=== PATIENT | male | born 2000 | race Caucasian/White ===

== ENCOUNTER 2021-02-07 17:14 | Emergency (ER) | payer SELFPAY ==
[2021-02-07 17:32] VITALS: BP 121/73; PULSE 96; RESP 16; TEMP 36.7; O2SAT 98; BMI 23.1
[2021-02-07 18:33] LABS: Add Urine Microscopic? NO; Charge for UA Resulting for Rev
[2021-02-07 18:38] LABS: Bilirubin Urine 1+ (Negative); Blood Urine Neg (Negative); Glucose Urine UA Norm (Normal); Ketones Urine Negative (Negative); Leukocyte Esterase Urine Negative (Negative); Nitrate Urine Negative (Negative); Protein Urine Neg (Negative); Urine Appearance Clear (CLEAR); Urine Color Yellow (Yellow); Urobilinogen Urine Norm (Negative); pH Urine 5 (5-7)
--- NOTE | 2021-02-07 18:40 | W.ED.ABDPA2 ---
HPI - Abdominal Pain General: Chief Complaint: Abdominal Pain Stated Complaint: Lower Abdominal Pain Time Seen by Provider: 02/07/21 18:40 History of Present Illness: HPI narrative: Patient comes in today with complaints of periumbilical pain that started this morning. Patient went to the bathroom after having a sudden onset of sharp abdominal pain and had diarrhea stools. Patient reports after the diarrhea stools he is continue to have periumbilical discomfort. Patient denies any fever or nausea. Patient reports the pain radiates into his groin. Associated Symptoms: Reports diarrhea Review of Systems General: Reports: 10 or more systems reviewed and unremarkable except in HPI and below GI: Reports: abdominal pain and diarrhea Physical Exam Const: COMMON NORMALS: no acute distress and patient oriented x3 GENERAL APPEARANCE: cooperative HENMT: COMMON NORMALS: normocephalic, TM's normal bilaterally and Normal external nose present HEAD & SCALP: normal to inspection and normocephalic NOSE: Normal external nose present TYMPANIC MEMBRANE: TM's normal bilaterally MOUTH: Normal oral and palatal mucosa present THROAT: posterior oropharynx normal Eye: GENERAL EYE: appearance normal, both eyes and all related structures Neck/C-Spine: COMMON NORMALS: full ROM Lymph: LYMPHATIC: no lymphadenopathy noted Chest: COMMONS NORMALS: normal inspection of the chest Resp: COMMON NORMALS: normal respiratory effort EFFORT & INSPECTION: Yes able to speak in complete sentences Cardio: COMMON NORMALS: regular rate and regular rhythm RATE: regular rate RHYTHM: regular rhythm GI: COMMON NORMALS: Soft to palpation PALPATION: Yes Soft to palpation and Yes Tenderness to palpation present (GI) (periumbilical) : COMMON NORMALS: Yes no CVA tenderness BLADDER/KIDNEY EXAM: Yes no CVA tenderness SCROTUM: Yes Cremasteric reflex present TESTES: Yes testicular lie normal Back/Pelvis: COMMON NORMALS: no CVA tenderness and thoracic and lumbar spine normal to inspection Extremity: COMMON NORMALS: normal to inspection Neuro: COMMON NORMALS: patient oriented x3 and moves all extremities Psych: COMMON NORMALS: mental status grossly normal and cooperative Skin: COMMON NORMALS: no rashes or lesions noted GENERAL SKIN EXAM: no rashes or lesions noted Course Vital Signs: Vital signs: Vital Signs Temperature 98.5 F 02/07/21 18:45 Pulse Rate 95 02/07/21 19:50 Respiratory Rate 16 02/07/21 17:32 Blood Pressure 93/57 02/07/21 19:50 Pulse Oximetry 99 02/07/21 19:50 MDM - Abdominal Pain MDM Narrative: Medical decision making narrative: 20-year-old male patient comes in with periumbilical abdominal pain. Patient also reported some diarrhea. Patient denies any nausea vomiting or fever. On exam patient is tender in the periumbilical region and the right lower quadrant. Patient did also mention some pain radiating into the groin on evaluation of the groin no noticeable hernia was noted and positive cremasteric reflex was noted. Differential diagnosis includes but not limited to abdominal pain, acute pancreatitis, gastroenteritis, hernia. CT of the abdomen pelvis noted no appendicitis and noted mesenteric adenitis. Laboratory values were normal. Reviewed exam with patient with recommendations for treatment and follow-up. Patient reported understanding. Differential Diagnosis: Differential diagnosis abdominal pain: Likely abdominal pain, acute appendicitis and gastroenteritis Lab Data: Labs: Lab Results 02/07/21 02/07/21 02/07/21 18:30 18:52 18:52 WBC 9.7 10^3/uL 10^3/ uL (4.0-10.0) RBC 5.00 10^6/uL 10^6 /uL (4.1-5.3) Hgb 14.6 g/dL g/dL (11.7-16.6) Hct 43.5 % % (42.0-52.0) MCV 87.0 fl fl (80-94) MCH 29.2 pg pg (28.0-34.0) MCHC 33.6 g/dL g/dL (30.0-36.0) RDW 13.2 % % (12.1-15.1) Plt Count 233 10^3/cmm 10^3 /cmm (130-400) MPV 10.4 fL fL (7.4-10.4) Neut % (Auto) 53.1 % % Lymph % (Auto) 34.5 % % [place] % (Auto) 5.6 % % Eos % (Auto) 6.0 % % Baso % (Auto) 0.5 % % Neut # (Auto) 5.13 10^3/uL 10^3 /uL (1.8-7.7) Lymph # (Auto) 3.3 10^3/uL 10^3/ uL (0.8-4.8) [place] # (Auto) 0.5 10^3/uL 10^3/ uL (0.2-0.9) Eos # (Auto) 0.6 10^3/uL 10^3/ uL (0.0-0.8) Baso # (Auto) 0.1 10^3/uL 10^3/ uL (0.0-0.1) Nucleated RBC % (a uto) 0 % % Nucleated RBCs # 0.0 /100WBC /100W BC Sodium 143 mmol/L mmol/L (136-145) Potassium 3.8 mmol/L mmol/L (3.5-5.1) Chloride 102 mmol/L mmol/L (98-107) Carbon Dioxide 28 mmol/L mmol/L (22-29) Anion Gap 16.8 (5-19) BUN 8 mg/dL mg/dL (6-20) Creatinine 0.8 mg/dL mg/dL (0.7-1.2) GFR Calculation 122.0 mL/min mL/m in (90-130) Glucose 85 mg/dL mg/dL (65-115) Calculated Osmolal ity 294 mOsm/kg mOsm/ kg (285-295) Calcium 9.5 mg/dL mg/dL (8.5-10.5) Total Bilirubin 0.3 mg/dL mg/dL (0.15-1.2) AST 14 U/L U/L (0-40) ALT 12 U/L U/L (0-41) Alkaline Phosphata se 68 IU/L IU/L (40-130) Total Protein 6.9 g/dL g/dL (6.6-8.7) Albumin 4.4 g/dL g/dL (3.5-5.2) Globulin 2.5 g/dL g/dL (1.3-4.6) Lipase 32 U/L U/L (13-60) Urine Color Yellow (Yellow) Urine Appearance Clear (CLEAR) Urine pH 5 (5-7) Ur Specific Gravit y 1.030 (1.005-1.030) Urine Protein Neg (Negative) Urine Glucose (UA) Norm (Normal) Urine Ketones Negative (Negative) Urine Blood Neg (Negative) Urine Nitrate Negative (Negative) Urine Bilirubin 1+ H (Negative) Urine Urobilinogen Norm mg/dL mg/dL (Negative) Ur Leukocyte Xuan ase Negative (Negative) Discharge Plan Discharge Patient Disposition: Home Clinical Impression: Acute mesenteric adenitis Condition: Stable Discharge Orders: Discharge ED (Routine); Ordered 02/07/21 Ordered By: Chris Ortega Referrals: Amor Castro FNP [Primary Care Provider] - Discharge Diet: Usual diet Discharge Activity: Increase activity as tolerated Patient Instructions: Mesenteric Adenitis (ED), Opioid Safety Activity Restrictions/Additional Instructions: Home and rest. Activity as tolerated. Drink plenty of fluids. Use acetaminophen for pain. Monitor for worsening symptoms such as high fever greater than 100.4, blood in vomit or stool, or new concerns. Follow-up with primary care. Return to the ER for new concerns. Coding Level of Care Code ED Nurse Administrator for Chg Fwd Exam Comprehensive
[2021-02-07 18:45] VITALS: BP 123/65; PULSE 102; TEMP 36.9; O2SAT 98
--- NOTE | 2021-02-07 18:48 | CTR_ITS ---
PROCEDURE INFORMATION: Exam: CT Abdomen And Pelvis With Contrast Exam date and time: 02/07/2021 6:48 PM Age: 20 years old Clinical indication: Other: Diarrhea; Abdominal pain; Localized; Lower; Additional info: Periumbilical pain TECHNIQUE: Imaging protocol: Computed tomography of the abdomen and pelvis with contrast. Radiation optimization: All CT scans at this facility use at least one of these dose optimization techniques: automated exposure control; mA and/or kV adjustment per patient size (includes targeted exams where dose is matched to clinical indication); or iterative reconstruction. Contrast material: OMNI 300; Contrast volume: 95 ml; Contrast route: INTRAVENOUS (IV); COMPARISON: No relevant prior studies available. RADIATION DOSE METRICS: Total DLP (mGy-cm): 1489.77 FINDINGS: Liver: Normal. No mass. Gallbladder and bile ducts: Normal. No calcified stones. No ductal dilation. Pancreas: Normal. No ductal dilation. Spleen: Normal. No splenomegaly. Adrenal glands: Normal. No mass. Kidneys and ureters: Normal. No hydronephrosis. Stomach and bowel: The stomach is distended with food and fluid. No wall thickening. Appendix: The appendix is visualized and is normal. Intraperitoneal space: Unremarkable. No free air. No significant fluid collection. Vasculature: Retroaortic left renal vein. Lymph nodes: Prominent mesenteric lymph nodes are most likely reactive. Urinary bladder: Unremarkable as visualized. Reproductive: Unremarkable as visualized. Bones/joints: Bone island in the left iliac bone. No fracture. Soft tissues: Unremarkable. CT/CT abdomen pelvis w con* [id number] IMPRESSION: 1. Mesenteric adenitis. 2. Distended stomach. Gastroparesis is not excluded. Radiation Dose CTDIVOL = (mGy): DLP = 1489.77 (mGy-cm)
[2021-02-07] MEDS: iohexol 300 mg/mL 100 mL Btl IV (19:03)
[2021-02-07 19:18] LABS: Basophils # 0.1 10^3/uL (0.0-0.1); Basophils % 0.5 %; Eosinophils # 0.6 10^3/uL (0.0-0.8); Hematocrit 43.5 % (42.0-52.0); Hemoglobin 14.6 g/dL (11.7-16.6); Lymphocytes # 3.3 10^3/uL (0.8-4.8); Lymphocytes % 34.5 %; Mean Corpuscular HGB Conc 33.6 g/dL (30.0-36.0); Mean Corpuscular Hemoglobin 29.2 pg (28.0-34.0); Mean Platelet Volume 10.4 fL (7.4-10.4); Monocytes # 0.5 10^3/uL (0.2-0.9); Monocytes % 5.6 %; Neutrophils # 5.13 10^3/uL (1.8-7.7); Neutrophils % 53.1 %; Nucleated Red Blood Cells % 0 %; Platelet Count 233 10^3/cmm (130-400); Red Cell Distribution Width 13.2 % (12.1-15.1); White Blood Count 9.7 10^3/uL (4.0-10.0)
[2021-02-07 19:19] LABS: Alanine Aminotransferase 12 U/L (0-41); Albumin Level 4.4 g/dL (3.5-5.2); Alkaline Phosphatase 68 IU/L (40-130); Anion Gap 16.8 (5-19); Aspartate Amino Transferase 14 U/L (0-40); Blood Urea Nitrogen 8 mg/dL (6-20); Calcium 9.5 mg/dL (8.5-10.5); Carbon Dioxide 28 mmol/L (22-29); Chloride 102 mmol/L (98-107); Globulin 2.5 g/dL (1.3-4.6); Glucose 85 mg/dL (65-115); Lipase 32 U/L (13-60); Osmolality Calculated 294 mOsm/kg (285-295); Potassium 3.8 mmol/L (3.5-5.1); Sodium 143 mmol/L (136-145); Total Bilirubin 0.3 mg/dL (0.15-1.2); Total Protein 6.9 g/dL (6.6-8.7)
[2021-02-07 19:50] VITALS: BP 93/57; PULSE 95; O2SAT 99
[2021-02-07 20:01] VITALS: BP 110/63; PULSE 91; O2SAT 98
== END 2021-02-07 20:02 | disposition home or self-care (01) ==
PROVIDERS: Emergency Medicine; Emergency Provider Nurse Practitioner Family; PCP Nurse Practitioner Family
DX: I88.0 Nonspecific mesenteric lymphadenitis (principal)
CPT/HCPCS: 74177; 80053; 81003; 83690; 85025; 99283; Q9967

== ENCOUNTER 2021-06-05 09:03 | Emergency (ER) | payer MEDICAID, SELFPAY ==
[2021-06-05 09:42] VITALS: BP 138/81; PULSE 85; RESP 16; TEMP 36.8; O2SAT 99; BMI 24.3
--- NOTE | 2021-06-05 09:54 | ED_ITS ---
HPI - Dental/Oral General: Chief complaint: Dental/Oral Stated complaint: dental pain Time Seen by Provider: 06/05/21 09:04 History of Present Illness: HPI Narrative: Patient has dental pain and lower right molar times last few days now having swelling MD Complaint: tooth pain Onset (ago): day(s) Duration: constant Severity: mild Context: history of dental caries Associated symptoms: Reports no associated symptoms; Denies fever(s) or odynophagia Review of Systems Const: Denies: fever(s) or chills ENMT: Reports: dental pain; Denies: throat pain or odynophagia Skin/Breast: Denies: rash Physical Exam Const: COMMON NORMALS: no acute distress GENERAL APPEARANCE: cooperative HENMT: COMMON NORMALS: Normal external nose present FACE & SINUS: normal facial exam NOSE: Normal external nose present TEETH & GINGIVA IMAGES: 1. Dental abscess not visible on the gumline but there is redness and swelling and then does have some swelling to the jaw area able to speak in complete sentences no significant lymphadenopathy Neck/C-Spine: COMMON NORMALS: full ROM Lymph: LYMPHATIC: no lymphadenopathy noted Psych: COMMON NORMALS: mental status grossly normal Skin: COMMON NORMALS: no rashes or lesions noted GENERAL SKIN EXAM: no rashes or lesions noted Course Vital Signs: Vital signs: Vital Signs Temperature 98.2 F 06/05/21 09:42 Pulse Rate 85 06/05/21 09:42 Respiratory Rate 16 06/05/21 09:42 Blood Pressure 138/81 06/05/21 09:42 Pulse Oximetry 99 06/05/21 09:42 Discharge Plan Discharge Patient Disposition: Home Clinical Impression: Dental abscess Condition: Stable Prescriptions: New clindamycin HCl 300 mg capsule 300 mg PO Q8H 7 Days Qty: 21 RF: 0 Discharge Orders: Discharge ED (Routine); Ordered 06/05/21 Ordered By: Amor Castro Discharge Diet: Usual diet Discharge Activity: Resume usual activity Patient Instructions: Dental Abscess (ED) Activity Restrictions/Additional Instructions: Follow-up with medical provider as directed. Take medications as prescribed. Return to the ER or your medical provider if condition worsens. Please read and understand discharge instructions. If any questions ask please. Follow-up with Jag as soon as he can. Coding Level of Care Code ED Transplant Coordinator for Dorcas Wiseman
[2021-06-05 09:59] VITALS: BP 138/85; PULSE 85; RESP 16; TEMP 36.3; O2SAT 97
== END 2021-06-05 10:03 | disposition home or self-care (01) ==
PROVIDERS: Emergency Provider Nurse Practitioner Family
DX: K04.7 Periapical abscess without sinus (principal)
CPT/HCPCS: 99281

== ENCOUNTER 2021-06-25 17:07 | Inpatient (IN) | payer MEDICAID, SELFPAY ==
[2021-06-25 17:14] VITALS: BP 109/67; PULSE 128; RESP 18; TEMP 36.8; O2SAT 97; BMI 22.6
--- NOTE | 2021-06-25 17:26 | W.ED.PSYCHS ---
HPI - Psych General: Chief Complaint: Psychiatric Symptoms Stated Complaint: SI; active attempts Time Seen by Provider: 06/25/21 17:12 Source: patient Mode of arrival: ambulatory Limitations: no limitations History of Present Illness: 20-year-old male who states he has been having suicidal thoughts over the last month with of worsening this week. States that last week he took pills in an attempt to kill himself. He states he is just been increasingly depressed does not take any meds never seen him in the past. He denies any worsening improving factors denies any recent attempts this week. Associated symptoms: Reports depression and suicidal ideation Review of Systems Const: Denies: fever(s), chills, body aches or change in appetite Eyes: Denies: blurry vision or eye discomfort ENMT: Denies: throat pain or dental pain Card: Denies: chest pain Resp: Denies: dyspnea GI: Denies: abdominal pain, nausea, vomiting or diarrhea : Denies: dysuria Musc: Denies: neck pain or back pain Skin/Breast: Denies: rash Neuro: Denies: headache(s) Psych: Reports: depression and suicidal ideation Jonh/Lymph: Denies: easy bruising All/Imm: Denies: urticaria PFSH ED PFSH: Medical History (Updated 06/25/21 @ 17:29 by Kassidy Russo MD) No pertinent past medical history Social History Substance/Drug Use: current Physical Exam Const: COMMON NORMALS: patient oriented x3 and healthy appearing HENMT: COMMON NORMALS: normocephalic and atraumatic HEAD & SCALP: normocephalic and atraumatic Eye: COMMON NORMALS: Equal, round and reactive pupils present and EOMs intact bilaterally PUPIL: Yes Equal, round and reactive pupils present Neck/C-Spine: COMMON NORMALS: full ROM and supple Chest: COMMONS NORMALS: normal inspection of the chest and normal palpation of entire chest wall Resp: COMMON NORMALS: normal respiratory effort, No retractions, No use of accessory muscles and clear to auscultation bilaterally AUSCULTATION: clear to auscultation bilaterally Cardio: COMMON NORMALS: regular rate, regular rhythm and No murmurs present (Cardio) RATE: regular rate RHYTHM: regular rhythm GI: COMMON NORMALS: Normal to inspection, nondistended, normoactive bowel sounds present, Soft to palpation, non-tender and no masses PALPATION: Yes Soft to palpation Extremity: COMMON NORMALS: normal to inspection and full ROM Neuro: COMMON NORMALS: patient oriented x3, moves all extremities and no focal motor deficits Psych: COMMON NORMALS: mental status grossly normal and cooperative MOOD & AFFECT: Yes depressed mood THOUGHT CONTENT: Yes Suicidality present Skin: COMMON NORMALS: no rashes or lesions noted and no wounds GENERAL SKIN EXAM: no rashes or lesions noted Course Vital Signs: Vital signs: Vital Signs Temperature 98.2 F 06/25/21 17:14 Pulse Rate 128 H 06/25/21 17:14 Respiratory Rate 18 06/25/21 17:14 Blood Pressure 109/67 06/25/21 17:14 Pulse Oximetry 97 06/25/21 17:14 [facility] - Psych Medical Decision Making Patient presents here with suicidal ideation. Patient is medically cleared here and will admit to psych Lab Data : 06/25/21 17:55 06/25/21 17:55 Laboratory Results WBC 10.4 10^3/uL (4.0-10.0) H 06/25/21 17:55 RBC 5.12 10^6/uL (4.1-5.3) 06/25/21 17:55 Hgb 14.8 g/dL (11.7-16.6) 06/25/21 17:55 Hct 44.8 % (42.0-52.0) 06/25/21 17:55 MCV 87.5 fl (80-94) 06/25/21 17:55 MCH 28.9 pg (28.0-34.0) 06/25/21 17:55 MCHC 33.0 g/dL (30.0-36.0) 06/25/21 17:55 RDW 12.8 % (12.1-15.1) 06/25/21 17:55 Plt Count 269 10^3/cmm (130-400) 06/25/21 17:55 MPV 10.2 fL (7.4-10.4) 06/25/21 17:55 Neut % (Auto) 51.9 % 06/25/21 17:55 Lymph % (Auto) 37.2 % 06/25/21 17:55 [place] % (Auto) 5.5 % 06/25/21 17:55 Eos % (Auto) 4.7 % 06/25/21 17:55 Baso % (Auto) 0.4 % 06/25/21 17:55 Neut # (Auto) 5.38 10^3/uL (1.8-7.7) 06/25/21 17:55 Lymph # (Auto) 3.9 10^3/uL (0.8-4.8) 06/25/21 17:55 [place] # (Auto) 0.6 10^3/uL (0.2-0.9) 06/25/21 17:55 Eos # (Auto) 0.5 10^3/uL (0.0-0.8) 06/25/21 17:55 Baso # (Auto) 0.0 10^3/uL (0.0-0.1) 06/25/21 17:55 Nucleated RBC % (auto) 0 % 06/25/21 17:55 Nucleated RBCs # 0.0 /100WBC 06/25/21 17:55 Sodium 142 mmol/L (136-145) 06/25/21 17:55 Potassium 3.9 mmol/L (3.5-5.1) 06/25/21 17:55 Chloride 105 mmol/L (98-107) 06/25/21 17:55 Carbon Dioxide 21 mmol/L (22-29) L 06/25/21 17:55 Anion Gap 19.9 (5-19) H 06/25/21 17:55 BUN 12 mg/dL (6-20) 06/25/21 17:55 Creatinine 0.5 mg/dL (0.7-1.2) L 06/25/21 17:55 GFR Calculation 209.9 mL/min (90-130) H 06/25/21 17:55 Glucose 126 mg/dL (65-115) H 06/25/21 17:55 Calculated Osmolality 295 mOsm/kg (285-295) 06/25/21 17:55 Calcium 10.1 mg/dL (8.5-10.5) 06/25/21 17:55 Total Bilirubin 0.2 mg/dL (0.15-1.2) 06/25/21 17:55 AST 15 U/L (0-40) 06/25/21 17:55 ALT 19 U/L (0-41) 06/25/21 17:55 Alkaline Phosphatase 97 IU/L (40-130) 06/25/21 17:55 Total Protein 7.4 g/dL (6.6-8.7) 06/25/21 17:55 Albumin 4.5 g/dL (3.5-5.2) 06/25/21 17:55 Globulin 2.9 g/dL (1.3-4.6) 06/25/21 17:55 Salicylates < 0.3 mg/dL (3-10) L 06/25/21 17:55 Acetaminophen < 5.0 ug/mL (10-30) L 06/25/21 17:55 Ethyl Alcohol < 10 mg/dL (0-10) 06/25/21 17:55 Discharge Plan Discharge Patient Disposition: Admitted As Inpatient Clinical Impression: Suicidal ideation Coding Level of Care Code ED Can Closing Machine Operator for Dorcas Fwd Exam Comprehensive
[2021-06-25 18:09] LABS: Basophils % 0.4 %; Eosinophils # 0.5 10^3/uL (0.0-0.8); Eosinophils % 4.7 %; Hematocrit 44.8 % (42.0-52.0); Hemoglobin 14.8 g/dL (11.7-16.6); Lymphocytes # 3.9 10^3/uL (0.8-4.8); Lymphocytes % 37.2 %; Mean Corpuscular Hemoglobin 28.9 pg (28.0-34.0); Mean Corpuscular Volume 87.5 fl (80-94); Mean Platelet Volume 10.2 fL (7.4-10.4); Monocytes # 0.6 10^3/uL (0.2-0.9); Monocytes % 5.5 %; Neutrophils # 5.38 10^3/uL (1.8-7.7); Neutrophils % 51.9 %; Nucleated Red Blood Cells % 0 %; Platelet Count 269 10^3/cmm (130-400); Red Blood Count 5.12 10^6/uL (4.1-5.3); Red Cell Distribution Width 12.8 % (12.1-15.1); White Blood Count 10.4 10^3/uL (4.0-10.0)
[2021-06-25 18:43] LABS: Alanine Aminotransferase 19 U/L (0-41); Albumin Level 4.5 g/dL (3.5-5.2); Alkaline Phosphatase 97 IU/L (40-130); Anion Gap 19.9 (5-19); Aspartate Amino Transferase 15 U/L (0-40); Blood Urea Nitrogen 12 mg/dL (6-20); Calcium 10.1 mg/dL (8.5-10.5); Carbon Dioxide 21 mmol/L (22-29); Chloride 105 mmol/L (98-107); Globulin 2.9 g/dL (1.3-4.6); Glomerular Filtration Rate 209.9 mL/min (90-130); Glucose 126 mg/dL (65-115); Osmolality Calculated 295 mOsm/kg (285-295); Potassium 3.9 mmol/L (3.5-5.1); Sodium 142 mmol/L (136-145); Total Bilirubin 0.2 mg/dL (0.15-1.2); Total Protein 7.4 g/dL (6.6-8.7)
[2021-06-25 18:44] LABS: Acetaminophen < 5.0 ug/mL (10-30); Alcohol Level < 10 mg/dL (0-10); Salicylate < 0.3 mg/dL (3-10)
[2021-06-25 20:31] VITALS: BP 112/66; PULSE 106; RESP 18; TEMP 36.3; O2SAT 93
[2021-06-25 21:27] VITALS: BP 100/64; PULSE 97; RESP 20; TEMP 36.4; O2SAT 97
[2021-06-26 06:00] VITALS: BP 116/74; PULSE 66; RESP 18; TEMP 36.6; O2SAT 97
--- NOTE | 2021-06-26 09:07 | W.PM.NPUH&PS ---
Providers/Chief Complaint Admitting Physician: Pio Drake MD Chief Complaint: SI; active attempts HPI NPU History of Present Illness Noam Moran is a 20 year old male who presented to the department with the following report: Chief Complaint: Psychiatric Symptoms Stated Complaint: SI; active attempts Time Seen by Provider: 06/25/21 17:12 Source: patient Mode of arrival: ambulatory Limitations: no limitations History of Present Illness:?? 20-year-old male who states he has been having suicidal thoughts over the last month with of worsening this week.? States that last week he took pills in an attempt to kill himself.? He states he is just been increasingly depressed does not take any meds never seen him in the past.? He denies any worsening improving factors denies any recent attempts this week. Associated symptoms: Reports depression and suicidal ideation He was admitted to the neuropsychiatric unit for definitive treatment of those issues. He presents today reporting that he was feeling suicidal, which is why he is here at the hospital. He reports he has never been hospitalized, he has never had outpatient services, and he has never been on medication. He reports he smokes about ten cigarettes a day and vapes. He denies alcohol. He reports he does smoke marijuana but denies any other illicit drugs. He has never been to rehab, never had a DUI, but he has had possession charge. He reports he started having difficulty maybe about 11 years old. He started experimenting heavily with drugs. He reports back then he started hearing voices. He reports he had depression, anxiety, and the voices started. He reports that he did have a suicide attempt [place] of last year. He reports there has been some self-injurious behavior at times. He reports he had just gotten to a point where he could not stand the voices, when he had this episode, before he came into the hospital. We discussed the risks, benefits, and alternatives of a trial of Abilify 10 mg po q daily, and he understood and agreed to proceed as is documented in this note. PSYCHIATRIC HISTORY: As above. SUBSTANCE ABUSE HISTORY: As above. FAMILY HISTORY: There are no mental cristian or addiction issues on either side of the family, and no suicide attempts or completions in the family reported. DEVELOPMENTAL HISTORY: He denies any issues with his mother?s or delivery of him. He met all developmental milestones on time. He denies any speech therapy, learning support, emotional support, or special education classes. PSYCHOSOCIAL HISTORY: He endorses that his parents were together when he was born, and that he is the only product of that union. He has a half-brother through his mother and a half-sister through his dad. He reports that his childhood was confined. He did not get out very much and once he got out, he started using drugs and getting into things. He denies significant CYS involvement. He denies any emotional, physical, or sexual abuse. He denies any traumatic events in his life. He reports that he made it to the 11th grade in high school. He did not get his GED. He endorses being heterosexual with his longest relationship being six years. He reports he has never been . He has a 2-year-old son. He has never been in the , and he endorses being a Sikh. His longest employment was eight months at [employer]. He reports he lives in a house with his fianc?, her son, her mother, and her mother?s boyfriend, in her mother?s house. LEGAL HISTORY: He reports he has been in [facility] three times; the longest time was not very long. MEDICAL HISTORY: Please see ED note for details. Meds NPU Home Medications Medication Instructions Recorded Confirmed Last Taken Type No Known Home Medications 06/25/21 06/25/21 Unknown History Allergies Allergy/AdvReac Type Severity Reaction Status Date / Time cefdinir [From Omnicef] Allergy ALGY-Rash Verified 06/05/21 09:47 Penicillins Allergy ALGY-Rash Verified 06/05/21 09:47 [facility] NPU PFS: Medical History (Updated 06/28/21 @ 07:11 by Pio Drake MD) No pertinent past medical history Mental Status Exam MSE Comments: This is a slender, white male, in hospital scrubs, with adequate grooming, and eye contact. No abnormal movements except for mild psychomotor agitation. Cooperative with exam in mild distress. Speech was normal rate and volume. Mood described as struggling; affect congruent. Thought process, organized. He does report auditory hallucinations but denies visual hallucinations. He reports he is hearing voices saying bad things about him and telling him he is worthless. Attention, concentration, and memory appear intact but were not formally tested. He is alert and oriented times three. Insight and judgment appear fair, impulse control limited. Vitals/I&O/Wt Last Vital Signs Temp 97.8 F 06/26/21 06:00 Pulse 66 06/26/21 06:00 Resp 18 06/26/21 06:00 BP 116/74 06/26/21 06:00 Pulse Ox 97 06/26/21 06:00 Weight last 48 hrs Weight 79.923 kg Data NPU : 06/25/21 17:55 06/25/21 17:55 A&P Assessment and plan (1) Suicidal ideation: Status: Acute (2) Cannabis abuse: Status: Acute (3) Psychosis: Status: Acute (4) Schizophrenia: Status: Acute Plan This is a 20-year-old, white male, with psychosis, with concerns for schizophrenia as well as cannabis use, suicidal thoughts, reporting auditory hallucinations, presenting with an openness to treatment. RECOMMENDATION AND PLAN: 1. Continue current medication. Continue current medications. Start Abilify 10 mg po qam. 2. Encourage individual, group, and milieu therapy. 3. Continue q-15 minute checks for safety. 4. Encourage sober living treatment at the highest level of care, to which he is willing to commit. Involuntary Hold Information 96 Hour Hold: 96 Hour Involuntary Admission: Yes 96 Hour Hold Ending Date: 06/29/21 96 Hour Hold Ending Time: 17:35 Attestations NPU Medical Necessity Statement*: Inpatient hospitalization is medically necessary and the clinically appropriate intervention, at this time. We will monitor medications and make changes as indicated. Patient will be in the hospital for over two midnights. Likely length of stay is 3-5 days. Coding Level of Care Code Acute Technical Service Rep for Dorcas Wiseman Diagnoses Suicidal ideation R45.851 Cannabis abuse F12.10 Psychosis F29 Schizophrenia F20.9
--- NOTE | 2021-06-26 12:48 | NPU.GN ---
[facility] Group Topic: Self Care General Mood of Group: Noam did not attend group he was sleeping .
[2021-06-26] MEDS: nicotine 2 mg Gum BUCCAL ×3 (13:51→22:07)
[2021-06-26 14:00] VITALS: BP 112/78; PULSE 78; RESP 17; TEMP 36.9; O2SAT 98
[2021-06-26 20:20] VITALS: BP 98/65; PULSE 108; RESP 18; TEMP 36.6; O2SAT 99
[2021-06-26] MEDS: ARIPiprazole 10 mg Tablet PO (21:13)
[2021-06-26] MEDS: trazodone 50 mg Tablet PO (21:29)
[2021-06-27 05:40] VITALS: BP 141/78; PULSE 78; RESP 17; TEMP 36.6; O2SAT 97
[2021-06-27] MEDS: ARIPiprazole 10 mg Tablet PO (08:39)
[2021-06-27] MEDS: nicotine 2 mg Gum BUCCAL (09:17)
[2021-06-27] MEDS: nicotine 21 mg Patch 1 PATCH TRANSDERMA (12:25)
--- NOTE | 2021-06-27 12:42 | NPU.GN ---
[facility] Topic:Coping Skills General Mood of Group: Noam did attend and participate in group today. Noam seems stable at this time. This CSS aided client in completing the [facility] [place] new patient packert for services. Clients hygiene was good.
[2021-06-27 14:00] VITALS: BP 97/58; PULSE 103; RESP 18; TEMP 36.4; O2SAT 96
--- NOTE | 2021-06-27 14:54 | P.NPUPN_ITS ---
Subjective NPU Subjective: Interval history: Patient presents today reporting that he feels the medication is helpful and he is feeling a little less suicidal. He was more focused on discharge and hoping he would be able to leave soon. We discussed the importance of him continuing his medication and working with the social work team on aftercare planning. We also discussed the Dr. Mart would be here tomorrow and have notes from our encounters and be able to make an independent decision about readiness for discharge. Mental Status Exam MSE Comments: This is a slender, white male, in hospital scrubs, with adequate grooming, and eye contact. No abnormal movements except for mild psychomotor agitation. Cooperative with exam in no acute distress. Speech was normal rate and volume. Mood described as better; affect congruent. Thought process, organized. Thought content: Patient denies suicidal or homicidal ideation, there are no delusions reported and he seems a little less guarded, he does report resolving auditory hallucinations but denies visual hallucinations. Attention, concentration, and memory appear intact but were not formally tested. He is alert and oriented times three. Insight and judgment appear fair, impulse control limited. Vitals/I&O/Wt Last Vital Signs Temp 97.5 F L 06/27/21 14:00 Pulse 103 H 06/27/21 14:00 Resp 18 06/27/21 14:00 BP 97/58 06/27/21 14:00 Pulse Ox 96 06/27/21 14:00 Data NPU : 06/25/21 17:55 06/25/21 17:55 A&P Assessment and plan (1) Schizophrenia: Status: Acute (2) Psychosis: Status: Acute (3) Cannabis abuse: Status: Acute (4) Suicidal ideation: Status: Acute Plan This is a 20-year-old, white male, with psychosis, with concerns for schizophrenia as well as cannabis use, suicidal thoughts, reporting auditory hallucinations, presenting with an openness to treatment. RECOMMENDATION AND PLAN: 1. Continue current medication. Continue current medications. Started Abilify 10 mg po qam. 2. Encourage individual, group, and milieu therapy. 3. Continue q-15 minute checks for safety. 4. Encourage sober living treatment at the highest level of care, to which he is willing to commit. Involuntary Hold Information 96 Hour Hold: 96 Hour Involuntary Admission: Yes 96 Hour Hold Ending Date: 06/29/21 96 Hour Hold Ending Time: 17:35 Attestations NPU Medical Necessity Statement*: Inpatient hospitalization is medically necessary and the clinically appropriate intervention, at this time. We will monitor medications and make changes as indicated. Likely length of stay is 1-3 days. Coding Level of Care Code Acute Sr Risk Management Consultant for Dorcas Fwd Diagnoses Schizophrenia F20.9 Psychosis F29 Cannabis abuse F12.10 Suicidal ideation R45.851
[2021-06-27 20:08] VITALS: BP 113/64; PULSE 75; RESP 16; TEMP 36.4; O2SAT 97
[2021-06-28 06:00] VITALS: BP 86/47; PULSE 96; RESP 16; O2SAT 96
[2021-06-28] MEDS: ARIPiprazole 10 mg Tablet PO (11:32)
[2021-06-28] MEDS: nicotine 21 mg Patch 1 PATCH TRANSDERMA (11:44)
--- NOTE | 2021-06-28 12:41 | NPU.GN ---
[facility] Topic:Symptoms/ Judgment Boat Activity General Mood of Group: Noam did not attend group today.
[2021-06-28 13:50] VITALS: BP 90/53; PULSE 102; RESP 20; TEMP 36.7; O2SAT 96
[2021-06-28 14:00] VITALS: BP 90/53; PULSE 102; RESP 20; TEMP 36.7; O2SAT 96
--- NOTE | 2021-06-28 16:38 | P.NPUPN_ITS ---
Subjective NPU Subjective: Interval history: He says that he is doing better. He denies having suicidal ideation since he has been here. He says that both he and his girlfriend want to stop using methamphetamine. He says he uses it because of his social anxiety. If he is not high on methamphetamine he is very self-conscious and does not like going into the store. If he is high on methamphetamine he can talk to people and going to stores more comfortably in his self-confidence is significantly increased. He has always had difficulty with sleep and would like some trazodone to help him sleep. He has always had difficulty with concentration. He agreed to continue his Abilify and trazodone and would like to add some Prozac. He wanted to use an antidepressant that did not cost much. He said he has heard voices since he was 11 years old when he started using methamphetamine. He has used just about constantly since then. He said the longest he has been off of methamphetamine was 1 week when he was in halfway. He does not remember whether the voices increased or decreased during that time. He has had delusions but said that he can generally convince himself that there really are not people hiding in the bushes. Mental Status Exam MSE Comments: This is a slender, white male, in hospital scrubs, with adequate grooming, and eye contact. No abnormal movements except for mild psychomotor agitation. Cooperative with exam in no acute distress. Speech was normal rate and volume. Mood described as good; affect congruent. Thought process, organized. Thought content: Patient denies suicidal or homicidal ideation, there are no delusions reported., he does report resolving auditory hallucinations but denies visual hallucinations. Attention, concentration, and memory appear intact but were not formally tested. He is alert and oriented times three. Insight and judgment appear fair, impulse control limited. Cognition: Patient Appearance: Appropriate Level of Consciousness: Awake, Alert, Appropriate and Follows Commands Patient Cognition Impaired: No Ability to Follow Directions: Excellent Patient Orientation (long list): Person, Place, Time, Name, Age, Birthday, Month and Year Comprehension Ability: No Impairment Hallucination Type: None Delusion Description: Not Present Thought Process: Appropriate and Logical Affect: Affect Description: Appropriate Behavior: Patient Behavior: Appropriate Speech Pattern: Appropriate Vitals/I&O/Wt Last Vital Signs Temp 98.1 F 06/28/21 14:00 Pulse 102 H 06/28/21 14:00 Resp 20 H 06/28/21 14:00 BP 90/53 06/28/21 14:00 Pulse Ox 96 06/28/21 14:00 Data NPU : 06/25/21 17:55 06/25/21 17:55 A&P Assessment and plan (1) Schizophrenia: Status: Acute (2) Psychosis: Status: Acute (3) Cannabis abuse: Status: Acute (4) Suicidal ideation: Status: Acute Plan This is a 20-year-old, white male, with psychosis, with concerns for schizophrenia as well as cannabis use, suicidal thoughts, reporting auditory hallucinations, presenting with an openness to treatment. RECOMMENDATION AND PLAN: 1.Continue current medication. Continue current medications. Abilify 10 mg po qam. Add Prozac 20 mg QAM 2.Encourage individual, group, and milieu therapy. 3.Continue q-15 minute checks for safety. 4.Encourage sober living treatment at the highest level of care, to which he is willing to commit. Involuntary Hold Information 96 Hour Hold: 96 Hour Involuntary Admission: Yes 96 Hour Hold Ending Date: 06/29/21 96 Hour Hold Ending Time: 17:35 Attestations NPU Medical Necessity Statement*: Inpatient hospitalization is medically necessary and the clinically appropriate intervention at this time. We will initiate medications and make changes as indicated. Coding Level of Care Code Acute Profiler Operator for Dorcas Wiseman Diagnoses Schizophrenia F20.9 Psychosis F29 Cannabis abuse F12.10 Suicidal ideation R45.851
[2021-06-28 21:52] VITALS: BP 132/84; PULSE 92; RESP 16; TEMP 36.6; O2SAT 97
[2021-06-29 06:00] VITALS: BP 102/61; PULSE 91; RESP 16; O2SAT 96
--- NOTE | 2021-06-29 06:25 | P.NPUDS_ITS ---
Diagnoses at Discharge Discharge Diagnosis (1) Schizophrenia: Status: Acute (2) Psychosis: Status: Acute (3) Cannabis abuse: Status: Acute (4) Suicidal ideation: Status: Acute (5) Methamphetamine abuse: Status: Acute Reason for Visit Reason for Visit: SI; active attempts Brief History: ? History of Present Illness:??? 20-year-old male who states he has been having suicid al thoughts over t he last month with of worsening this week.? States zaina t last week he too k pills in an atte mpt to kill himsel f.? He states he i s just been increa singly depressed d oes not take any m eds never seen him in the past.? He denies any worseni ng improving facto rs denies any rece nt attempts this w [place].Associated sym ptoms: Reports dep ression and suicid al ideation He was admitted to the neuropsychiatric unit for definitive treatment of those issues. He presents today reporting that he was feeling suicidal, which is why he is here at the hospital. He reports he has never been hospitalized, he has never had outpatient services, and he has never been on medication. He reports he smokes about ten cigarettes a day and vapes. He denies alcohol. He reports he does smoke marijuana but denies any other illicit drugs. He has never been to rehab, never had a DUI, but he has had possession charge. He reports he started having difficulty maybe about 11 years old. He started experimenting heavily with drugs. He reports back then he started hearing voices. He reports he had depression, anxiety, and the voices started. He reports that he did have a suicide attempt [place] of last year. He reports there has been some self- injurious behavior at times. He reports he had just gotten to a point where he could not stand the voices, when he had this episode, before he came into the hospital. We discussed the risks, benefits, and alternatives of a trial of Abilify 10 mg po q daily, and he understood and agreed to proceed as is documented in this note. PSYCHIATRIC HISTORY: As above. SUBSTANCE ABUSE HISTORY: As above. FAMILY HISTORY: There are no mental cristian or addiction issues on either side of the family, and no suicide attempts or completions in the family reported. DEVELOPMENTAL HISTORY: He denies any issues with his mother?s or delivery of him. He met all developmental milestones on time. He denies any speech therapy, learning support, emotional support, or special education classes. PSYCHOSOCIAL HISTORY: He endorses that his parents were together when he was born, and that he is the only product of that union. He has a half-brother through his mother and a half- sister through his dad. He reports that his childhood was confined. He did not get out very much and once he got out, he started using drugs and getting into things. He denies significant CYS involvement. He denies any emotional, physical, or sexual abuse. He denies any traumatic events in his life. He reports that he made it to the 11th grade in high school. He did not get his GED. He endorses being heterosexual with his longest relationship being six years. He reports he has never been . He has a 2-year-old son. He has never been in the , and he endorses being a Anabaptism. His longest employment was eight months at [employer]. He reports he lives in a house with his fianc?, her son, her mother, and her mother?s boyfriend, in her mother?s house. LEGAL HISTORY: He reports he has been in care home three times; the longest time was not very long. Hospital Course Hospital Course He slowly acclimated to the individual, group and milieu therapies provided. He was started on Abilify and required trazodone for sleep. On the last day he was given Prozac 20 mg daily. He was instructed to increase that to 40 mg as tolerated after 7 to 10 days. He tolerated these doses and showed steady improvement during his stay. He was able to contract for safety outside hospital prior to discharge. During the hospitalization, patient had routine laboratory studies which were within normal limits except for few outliers. Additionally there was a general medical evaluation which was also within normal limits and revealed no new acute processes. Discharge Summary: At the time of discharge, lethality was denied and psychosis was resolving. Mood and anxiety were well managed. Patient endorsed a plan to follow-up with the aftercare recommendations of the treatment team. Patient was evaluated and deemed to be absent credible lethality, and had achieved the maximum benefit from an inpatient hospitalization, so was discharged. Involuntary Hold Information 96 Hour Hold: 96 Hour Involuntary Admission: Yes 96 Hour Hold Ending Date: 06/29/21 96 Hour Hold Ending Time: 17:35 Mental Status Exam MSE Comments: This is a slender, white male, in hospital scrubs, with adequate grooming, and eye contact. No abnormal movements except for mild psychomotor agitation. Cooperative with exam in no acute distress. Speech was normal rate and volume. Mood described as good; affect congruent. Thought process, organized. Thought content: Patient denies suicidal or homicidal ideation, th ere are no delusions reported., he does report resolving auditory hallucinations but denies visual hallucinations. Attention, concentration, and memory appear intact but were not formally tested. He is alert and oriented times three. Insight and judgment appear fair, impulse control limited. Cognition: Patient Appearance: Appropriate Level of Consciousness: Awake, Alert, Appropriate and Follows Commands Patient Cognition Impaired: No Ability to Follow Directions: Excellent Patient Orientation (long list): Person, Place, Time, Name, Age, Birthday, Month and Year Comprehension Ability: No Impairment Hallucination Type: None Delusion Description: Not Present Thought Process: Appropriate and Logical Affect: Affect Description: Appropriate Behavior: Patient Behavior: Appropriate Speech Pattern: Appropriate Discharge Data Studies Completed and Pending: Pending at discharge Category Date Time Status Drug Screen, Urin e Stat Lab 06/25/21 17:12 Uncollected Laboratory Results WBC 10.4 10^3/uL (4.0 -10.0) H 06/25/21 17:55 RBC 5.12 10^6/uL (4.1 -5.3) 06/25/21 17:55 Hgb 14.8 g/dL (11.7-1 6.6) 06/25/21 17:55 Hct 44.8 % (42.0-52.0 ) 06/25/21 17:55 MCV 87.5 fl (80-94) 06/25/21 17:55 MCH 28.9 pg (28.0-34. 0) 06/25/21 17:55 MCHC 33.0 g/dL (30.0-3 6.0) 06/25/21 17:55 RDW 12.8 % (12.1-15.1 ) 06/25/21 17:55 Plt Count 269 10^3/cmm (130 -400) 06/25/21 17:55 MPV 10.2 fL (7.4-10.4 ) 06/25/21 17:55 Neut % (Auto) 51.9 % 06/25/21 17:55 Lymph % (Auto) 37.2 % 06/25/21 17:55 [place] % (Auto) 5.5 % 06/25/21 17:55 Eos % (Auto) 4.7 % 06/25/21 17:55 Baso % (Auto) 0.4 % 06/25/21 17:55 Neut # (Auto) 5.38 10^3/uL (1.8 -7.7) 06/25/21 17:55 Lymph # (Auto) 3.9 10^3/uL (0.8- 4.8) 06/25/21 17:55 [place] # (Auto) 0.6 10^3/uL (0.2- 0.9) 06/25/21 17:55 Eos # (Auto) 0.5 10^3/uL (0.0- 0.8) 06/25/21 17:55 Baso # (Auto) 0.0 10^3/uL (0.0- 0.1) 06/25/21 17:55 Nucleated RBC % (a uto) 0 % 06/25/21 17:55 Nucleated RBCs # 0.0 /100WBC 06/25/21 17:55 Sodium 142 mmol/L (136-1 45) 06/25/21 17:55 Potassium 3.9 mmol/L (3.5-5 .1) 06/25/21 17:55 Chloride 105 mmol/L (98-10 7) 06/25/21 17:55 Carbon Dioxide 21 mmol/L (22-29) L 06/25/21 17:55 Anion Gap 19.9 (5-19) H 06/25/21 17:55 BUN 12 mg/dL (6-20) 06/25/21 17:55 Creatinine 0.5 mg/dL (0.7-1. 2) L 06/25/21 17:55 GFR Calculation 209.9 mL/min (90- 130) H 06/25/21 17:55 Glucose 126 mg/dL (65-115 ) H 06/25/21 17:55 Calculated Osmolal ity 295 mOsm/kg (285- 295) 06/25/21 17:55 Calcium 10.1 mg/dL (8.5-1 0.5) 06/25/21 17:55 Total Bilirubin 0.2 mg/dL (0.15-1 .2) 06/25/21 17:55 AST 15 U/L (0-40) 06/25/21 17:55 ALT 19 U/L (0-41) 06/25/21 17:55 Alkaline Phosphata se 97 IU/L (40-130) 06/25/21 17:55 Total Protein 7.4 g/dL (6.6-8.7 ) 06/25/21 17:55 Albumin 4.5 g/dL (3.5-5.2 ) 06/25/21 17:55 Globulin 2.9 g/dL (1.3-4.6 ) 06/25/21 17:55 Salicylates < 0.3 mg/dL (3-10 ) L 06/25/21 17:55 Acetaminophen < 5.0 ug/mL (10-3 0) L 06/25/21 17:55 Ethyl Alcohol < 10 mg/dL (0-10) 06/25/21 17:55 Vitals: Last Vital Signs Temp 97.8 F 06/28/21 21:52 Pulse 91 06/29/21 06:00 Resp 16 06/29/21 06:00 BP 102/61 06/29/21 06:00 Pulse Ox 96 06/29/21 06:00 Discharge Plan Discharge Patient Disposition: Home Condition: Stable Prescriptions: New trazodone 50 mg Tablet 50 mg PO BEDTIME PRN (Reason: Insomnia) 30 Days Qty: 30 0RF fluoxetine 20 mg Capsule 20 mg PO DAILY 90 Days Qty: 90 0RF aripiprazole 10 mg Tablet 10 mg PO DAILY 30 Days Qty: 30 1RF Discharge Orders: Discharge Order (Routine); Ordered 06/29/21 Ordered By: Lukasz Mart Referrals: [facility] [place] [facility] [Outside] - 07/03/21 12:00 pm Discharge Diet: Regular Discharge Activity: Resume usual activity Patient Instructions: Opioid Safety Discharge Attestations NPU Time Spent in Discharge Care*: less than 30 min Specific Discharge Activities: Specific discharge activities: educating patient, discussing with case assembler/social workers/dc planners, documenting/other paperwork and evaluating patient/reviewing data Coding Level of Care Code Acute Chg FW DC note Diagnoses Schizophrenia F20.9 Psychosis F29 Cannabis abuse F12.10 Suicidal ideation R45.851 Methamphetamine abuse F15.10
[2021-06-29 09:51] VITALS: BP 102/61; PULSE 91; RESP 16; O2SAT 96
[2021-06-29] MEDS: ARIPiprazole 10 mg Tablet PO (09:55)
[2021-06-29] MEDS: fluoxetine 20 mg Capsule PO (09:55)
[2021-06-29] MEDS: nicotine 2 mg Gum BUCCAL (10:21)
== END 2021-06-29 11:30 | disposition home or self-care (01) | DRG 885 ==
LOC: ER 17:29 → NP 19:09
PROVIDERS: Admitting Provider Psychiatry & Neurology Psychiatry; Emergency Provider Emergency Medicine; Visit Provider Psychiatry & Neurology Psychiatry
DX: F23 Brief psychotic disorder (principal); R45.851 Suicidal ideations; F41.8 Other specified anxiety disorders; F15.10 Other stimulant abuse, uncomplicated; F12.10 Cannabis abuse, uncomplicated
CPT/HCPCS: 80053; 80307; 85025; 97150; 97165; 99285

== ENCOUNTER 2021-09-15 22:21 | Inpatient (IN) | payer MEDICAID, SELFPAY ==
--- NOTE | 2021-09-15 22:28 | ECG_ITS ---
[facility] Test Date: 2021-09-15 Pat Name: Noam Moran Department: Room: Gender: Male Senior Telecommunications Technician: : 2000 Requested By: Max Negron Order Number: [id number] Che MD: Zeeshan Rodriguez M.D. Measurements Intervals [place] Rate: 107 P: 45 GA: 143 QRS: 60 QRSD: 110 T: 33 QT: 377 QTc: 503 Interpretive Statements SINUS TACHYCARDIA POSSIBLE RIGHT VENTRICULAR CONDUCTION DELAY [RSR (QR) IN V1/V2] MODERATE T-WAVE ABNORMALITY, CONSIDER ANTERIOR ISCHEMIA [-0.1+ mV T-WAVE IN V3/V4] No previous ECG available for comparison Electronically Signed On 09-16-2021 8:17:39 CDT by Zeeshan Rodriguez M.D. [email or web address] [email or web address]Performance [email or web address].[id number]
[2021-09-15 22:32] VITALS: BP 131/76; PULSE 96; RESP 15; TEMP 36.7; O2SAT 97; BMI 23.7
[2021-09-15 22:59] LABS: Add Urine Microscopic? NO; Charge for UA Resulting for Rev
[2021-09-15 22:59] LABS: Basophils % 0.3 %; Eosinophils # 0.3 10^3/uL (0.0-0.8); Eosinophils % 4.9 %; Hematocrit 45.1 % (42.0-52.0); Hemoglobin 14.9 g/dL (11.7-16.6); Lymphocytes # 2.9 10^3/uL (0.8-4.8); Lymphocytes % 49.6 %; Mean Corpuscular Volume 87.9 fl (80-94); Mean Platelet Volume 10.2 fL (7.4-10.4); Monocytes # 0.4 10^3/uL (0.2-0.9); Monocytes % 6.8 %; Neutrophils # 2.19 10^3/uL (1.8-7.7); Neutrophils % 38.1 %; Nucleated Red Blood Cells % 0 %; Platelet Count 215 10^3/cmm (130-400); Red Blood Count 5.13 10^6/uL (4.1-5.3); White Blood Count 5.8 10^3/uL (4.0-10.0)
[2021-09-15 23:03] LABS: Bilirubin Urine Neg (Negative); Blood Urine Neg (Negative); Glucose Urine UA Norm (Normal); Ketones Urine Negative (Negative); Leukocyte Esterase Urine Negative (Negative); Nitrate Urine Negative (Negative); Protein Urine Neg (Negative); Specific Gravity, Urine 1.005 (1.005-1.030); Urine Appearance Clear (CLEAR); Urine Color Yellow (Yellow); Urobilinogen Urine Norm (Negative); pH Urine 6 (5-7)
[2021-09-15 23:12] LABS: Amphetamines Screen Urine Positive (Negative); Barbiturates Screen Urine Negative (Negative); Benzodiazepines Screen Urine Negative (Negative); Cocaine Screen Urine Negative (Negative); Opiate Screen Urine Negative (Negative); PCP Screen Urine Negative (Negative); THC Screen Urine Positive (Negative)
--- NOTE | 2021-09-15 23:18 | PC.NURSE ---
Took patients phone and placed it in his belongings bag in the filing cabinet in the ER. Pt. woke when phone was picked up and demanded that the phone be returned because he was texting his girlfriend and I explained that at this time he was not allowed to have his phone for his safety , so that it would not cause him to have more feelings of self harm.
[2021-09-15 23:22] LABS: Alanine Aminotransferase 15 U/L (0-41); Albumin Level 4.4 g/dL (3.5-5.2); Alkaline Phosphatase 87 IU/L (40-130); Anion Gap 18.4 (5-19); Aspartate Amino Transferase 14 U/L (0-40); Blood Urea Nitrogen 10 mg/dL (6-20); Carbon Dioxide 23 mmol/L (22-29); Chloride 102 mmol/L (98-107); Globulin 3.5 g/dL (1.3-4.6); Glomerular Filtration Rate 120.9 mL/min (90-130); Glucose 128 mg/dL (65-115); Lipase 38 U/L (13-60); Osmolality Calculated 291 mOsm/kg (285-295); Potassium 3.4 mmol/L (3.5-5.1); Sodium 140 mmol/L (136-145); Total Bilirubin 0.4 mg/dL (0.15-1.2); Total Protein 7.9 g/dL (6.6-8.7)
[2021-09-15 23:27] LABS: Acetaminophen < 5.0 ug/mL (10-30); Alcohol Level < 10 mg/dL (0-10); Salicylate < 0.3 mg/dL (3-10)
--- NOTE | 2021-09-15 23:52 | PC.NURSE ---
Late note, 2244, spoke with poison control on pt for OD on seroquel, spoke with Carol RN, she stated that pt was at risk for MATERIAL INSPECTOR depression, Coma, seizures, hypotension tachycardia with QT prolongation. She stated that pts peak time for med was 1 1/2 hrs, which was past already. took at 2229 arrival here. stated that she would call back and check on pt. Informed Dr Kwan of information, verbalized understanding
[2021-09-15 23:58] LABS: ABG PCO2 44.4 mmHg (35-45); ABG PH Result 7.38 (7.35-7.45); Arterial Blood Gas Hematocrit 39.5 % (42-52); Base Excess ABG 0.8 mmol/L (-2.0-2.0); Blood Gas Allen Test Pos; Blood Gas Sample Site Radial, left; Blood Gas Sample Type Arterial; HCO3 ABG 26.3 mmol/L (22-26); PO2 ABG 98.2 mmHg (80.0-100.0)
[2021-09-16] VITALS (113 sets, daily range): BP systolic 72–138; BP diastolic 42–85; PULSE 66–116; RESP 0–31; TEMP 36.5–36.9; O2SAT 92–99; BMI 24.8
[2021-09-16] MEDS: sodium chloride 0.9% 1,000 ML 999 ML IV
--- NOTE | 2021-09-16 00:19 | PC.NURSE ---
Pt.'s father and spouse came to see patient and have been explained that he will have no visitors. The father asks us to let him know that he is loved and he has a place to go to get away from his crazy girlfriend.
--- NOTE | 2021-09-16 00:19 | PC.NURSE ---
gave report to Robert RN, ICU 4
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
--- NOTE | 2021-09-16 00:40 | PC.NURSE ---
Pt. arrived to room ICU 4 from ER. Pt. has mild lethargy but wakes up easily to verbal stimuli. Pt. is mildly uncooporative. No needs identified at this time. Sitter at bedside.
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
--- NOTE | 2021-09-16 01:00 | ECG_ITS ---
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 Measurements Intervals [place] Rate: 94 P: 23 MD: 149 QRS: 57 QRSD: 97 T: 30 QT: 364 QTc: 457 Interpretive Statements SINUS RHYTHM Compared to ECG 09/15/2021 22:39:00 Sinus tachycardia no longer present T-wave abnormality no longer present Possible ischemia no longer present Electronically Signed On 09-16-2021 8:24:49 CDT by Zeeshan Rodriguez M.D. [id number]
[2021-09-16] MEDS: dextrose 5%-sod chloride 0.9% 1,000 ML 100 ML IV ×2 (01:36→11:48)
[2021-09-16] MEDS: pantoprazole 40 mg SDV IVP ×2 (01:36→13:13)
[2021-09-16 01:50] LABS: Phosphorus 2.7 mg/dL (2.5-4.5); Thyroid Stimulating Hormone 1.38 uIU/mL (0.27-4.20)
[2021-09-16 02:44] LABS: Valproic Acid Level 38.9 ug/mL (50-100)
--- NOTE | 2021-09-16 09:00 | ECG_ITS ---
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 Measurements Intervals [place] Rate: 95 P: 27 VA: 139 QRS: 46 QRSD: 102 T: 34 QT: 358 QTc: 452 Interpretive Statements SINUS RHYTHM Compared to ECG 09/16/2021 01:20:06 No significant changes Electronically Signed On 09-16-2021 18:07:01 CDT by Zeeshan Rodriguez M.D. [id number]
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
--- NOTE | 2021-09-16 13:00 | ECG_ITS ---
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 Measurements Intervals [place] Rate: 90 P: 34 CT: 134 QRS: 56 QRSD: 109 T: 46 QT: 359 QTc: 441 Interpretive Statements SINUS RHYTHM Compared to ECG 09/16/2021 09:33:35 No significant changes Electronically Signed On 09-16-2021 18:07:33 CDT by Zeeshan Rodriguez M.D. [id number]
[2021-09-16] MEDS: LORazepam 2 mg/mL INJ 1 mL IM (16:52)
[2021-09-16] MEDS: haloperidol inj 5 mg/mL INJ 1 mL IM (16:53)
[2021-09-16] MEDS: nicotine 21 mg Patch 1 PATCH TRANSDERMA (17:47)
--- NOTE | 2021-09-16 18:03 | PC.ADMIT ---
[email or web address] Admission Note: The patient,Noam Moran,21 y/o, was given written information regarding hospital policies, unit procedures and contact persons. Patient's smoking status: never smoked. Vital Signs - 8 hr 09/16/21 10:09 09/16/21 10:15 09/16/21 10:30 Temperature Pulse Rate 97 90 93 Respiratory Rate 16 15 Blood Pressure 102/57 111/57 Pulse Oximetry 97 96 97 09/16/21 10:45 09/16/21 11:00 09/16/21 11:15 Temperature Pulse Rate 93 87 98 Respiratory Rate 16 17 17 Blood Pressure 103/69 100/57 104/53 Pulse Oximetry 97 96 97 09/16/21 11:30 09/16/21 11:45 09/16/21 12:00 Temperature Pulse Rate 103 H 94 93 Respiratory Rate 22 H 17 21 H Blood Pressure 104/53 87/62 113/70 Pulse Oximetry 96 96 97 09/16/21 12:15 09/16/21 12:30 09/16/21 12:45 Temperature Pulse Rate 94 102 H Respiratory Rate 16 21 H 28 H Blood Pressure 113/70 121/81 121/81 Pulse Oximetry 97 97 98 09/16/21 13:00 09/16/21 13:15 09/16/21 13:30 Temperature 97.9 F Pulse Rate 93 98 95 Respiratory Rate 22 H 16 19 H Blood Pressure 113/69 118/71 116/65 Pulse Oximetry 96 97 97 09/16/21 13:45 09/16/21 14:00 09/16/21 14:15 Temperature Pulse Rate 95 90 101 H Respiratory Rate 22 H 20 H 16 Blood Pressure 116/65 117/68 94/42 Pulse Oximetry 98 09/16/21 14:30 09/16/21 14:45 09/16/21 15:00 Temperature Pulse Rate 99 96 92 Respiratory Rate 21 H 27 H 25 H Blood Pressure 98/52 98/58 98/58 Pulse Oximetry 09/16/21 15:15 09/16/21 15:30 09/16/21 15:45 Temperature Pulse Rate 95 94 88 Respiratory Rate 21 H 20 H 31 H Blood Pressure 72/62 94/53 108/51 Pulse Oximetry 09/16/21 17:09 Temperature 98.4 F Pulse Rate 92 Respiratory Rate 17 Blood Pressure 120/82 Pulse Oximetry 96
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
[2021-09-17 06:00] VITALS: BP 84/52; PULSE 81; RESP 17; TEMP 36.4; O2SAT 95
[2021-09-17] MEDS: divalproex ER 500 mg Tablet (24H) PO ×2 (08:19→17:15)
[2021-09-17] MEDS: ARIPiprazole 10 mg Tablet PO (08:19)
[2021-09-17] MEDS: pantoprazole DR 40 mg Tablet 20 MG PO (08:20)
[2021-09-17] MEDS: fluoxetine 20 mg Capsule PO (08:20)
[2021-09-17 09:59] LABS: Basophils % 0.3 %; Eosinophils # 0.4 10^3/uL (0.0-0.8); Eosinophils % 4.1 %; Hematocrit 45.6 % (42.0-52.0); Hemoglobin 14.5 g/dL (11.7-16.6); Lymphocytes # 2.3 10^3/uL (0.8-4.8); Lymphocytes % 26.1 %; Mean Corpuscular HGB Conc 31.8 g/dL (30.0-36.0); Mean Corpuscular Hemoglobin 29.3 pg (28.0-34.0); Mean Corpuscular Volume 92.1 fl (80-94); Mean Platelet Volume 10.1 fL (7.4-10.4); Monocytes # 0.4 10^3/uL (0.2-0.9); Monocytes % 4.8 %; Neutrophils # 5.64 10^3/uL (1.8-7.7); Neutrophils % 64.5 %; Nucleated Red Blood Cells % 0 %; Platelet Count 201 10^3/cmm (130-400); Red Blood Count 4.95 10^6/uL (4.1-5.3); White Blood Count 8.8 10^3/uL (4.0-10.0)
[2021-09-17 10:20] LABS: Alanine Aminotransferase 12 U/L (0-41); Albumin Level 3.9 g/dL (3.5-5.2); Alkaline Phosphatase 79 IU/L (40-130); Aspartate Amino Transferase 17 U/L (0-40); Blood Urea Nitrogen 11 mg/dL (6-20); Calcium 9.4 mg/dL (8.5-10.5); Carbon Dioxide 25 mmol/L (22-29); Chloride 107 mmol/L (98-107); Globulin 3.2 g/dL (1.3-4.6); Glomerular Filtration Rate 168.5 mL/min (90-130); Glucose 89 mg/dL (65-115); Magnesium 2.2 mg/dL (1.7-2.3); Osmolality Calculated 291 mOsm/kg (285-295); Phosphorus 3.4 mg/dL (2.5-4.5); Sodium 141 mmol/L (136-145); Total Bilirubin 0.3 mg/dL (0.15-1.2); Total Protein 7.1 g/dL (6.6-8.7)
[2021-09-17 10:24] LABS: Anion Gap 13.2 (5-19); Potassium 4.2 mmol/L (3.5-5.1)
[2021-09-17] MEDS: nicotine 2 mg Gum BUCCAL ×2 (13:59→16:09)
[2021-09-17 14:00] VITALS: BP 95/62; PULSE 87; RESP 17; TEMP 36.5; O2SAT 97
--- NOTE | 2021-09-17 18:55 | W.PM.NPUPNS ---
Subjective NPU Subjective: Patient presents today fairly despondent and somewhat recalcitrant about the situation. He reports that he is doing fine on his medication and denies any changes and continues to endorse a desire to go home sooner than later. He still is not relating any clear sense of why he made a suicide attempt other than there being an argument with his significant other. He reports he need to get home to his 2-year-old Mental Status Exam MSE Comments: This is a slender, white male, in hospital scrubs, with limited grooming, but adequate eye contact. No abnormal movements except for mild to extreme psychomotor agitation.? Uncooperative with exam in no acute distress. Speech was mostly normal rate and volume. Mood described as okay; affect [place]. Thought process, organized.? Thought content: Patient denies suicidal or homicidal ideation, there are no delusions reported or noted, he denied auditory or visual hallucinations. Attention, concentration, and memory appear intact but were not formally tested. He is alert and oriented times three. Insight and judgment appear impaired, impulse control impaired. Vitals/I&O/Wt Last Vital Signs Temp 97.7 F 09/17/21 14:00 Pulse 87 09/17/21 14:00 Resp 17 09/17/21 14:00 BP 95/62 09/17/21 14:00 Pulse Ox 97 09/17/21 14:00 09/17/21 09/17/21 09/17/21 06:59 14:59 22:59 Intake Total 240 / 240 Output Total 1100 / 1100 Balance -860 / -860 Weight last 48 hrs Weight 87.725 kg Weight 83.915 kg Data NPU : 09/19/21 07:35 09/19/21 07:35 A&P Assessment and plan (1) Intentional overdose: Status: Acute (2) Methamphetamine abuse: Status: Acute (3) Schizophrenia: Status: Acute (4) Cannabis abuse: Status: Acute (5) Suicidal ideation: Status: Acute (6) Suicide attempt: Status: Acute Plan This is a 21-year-old, white male, with a history of psychosis, with concerns for schizophrenia but positive UDS for cannabis and methamphetamine, suicidal thoughts and attempt, who presents to the ICU after that attempt desiring to discharge and being aggressive. RECOMMENDATION AND PLAN: 1. Continue current medication. Continue current medications. 2. Encourage individual, group, and milieu therapy. 3. Continue q-15 minute checks for safety. 4. Encourage sober living treatment at the highest level of care, to which he is willing to commit. 5. ? Evaluate for safety given 96-hour hold and suicide attempt. Involuntary Hold Information 96 Hour Hold: 96 Hour Involuntary Admission: Yes 96 Hour Hold Ending Date: 09/20/21 96 Hour Hold Ending Time: 22:26 Attestations NPU Medical Necessity Statement*: Inpatient hospitalization is medically necessary and the clinically appropriate intervention at this time. We will monitor medication to make changes as indicated. Likely length of stay 2-4 days. 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
[2021-09-17 21:23] VITALS: BP 87/50; PULSE 81; RESP 16; TEMP 36.6; O2SAT 96
[2021-09-17] MEDS: quetiapine 100 mg Tablet PO (21:51)
[2021-09-18 06:00] VITALS: BP 87/50; PULSE 73; RESP 19; TEMP 36.8; O2SAT 94
[2021-09-18 07:35] LABS: Basophils % 0.4 %; Eosinophils # 0.3 10^3/uL (0.0-0.8); Eosinophils % 4.4 %; Hematocrit 46.1 % (42.0-52.0); Hemoglobin 15.1 g/dL (11.7-16.6); Lymphocytes # 2.7 10^3/uL (0.8-4.8); Lymphocytes % 34.8 %; Mean Corpuscular HGB Conc 32.8 g/dL (30.0-36.0); Mean Corpuscular Hemoglobin 28.8 pg (28.0-34.0); Mean Platelet Volume 9.8 fL (7.4-10.4); Monocytes # 0.4 10^3/uL (0.2-0.9); Monocytes % 5.7 %; Neutrophils # 4.21 10^3/uL (1.8-7.7); Neutrophils % 54.4 %; Nucleated Red Blood Cells % 0 %; Platelet Count 222 10^3/cmm (130-400); Red Blood Count 5.24 10^6/uL (4.1-5.3); Red Cell Distribution Width 12.7 % (12.1-15.1); White Blood Count 7.7 10^3/uL (4.0-10.0)
[2021-09-18] MEDS: divalproex ER 500 mg Tablet (24H) PO ×2 (07:50→17:31)
[2021-09-18] MEDS: pantoprazole DR 40 mg Tablet 20 MG PO (07:50)
[2021-09-18] MEDS: ARIPiprazole 10 mg Tablet PO (07:50)
[2021-09-18] MEDS: fluoxetine 20 mg Capsule PO (07:51)
[2021-09-18] MEDS: nicotine 2 mg Gum BUCCAL ×3 (07:54→16:12)
[2021-09-18 08:03] LABS: Alanine Aminotransferase 12 U/L (0-41); Albumin Level 4.3 g/dL (3.5-5.2); Alkaline Phosphatase 84 IU/L (40-130); Anion Gap 13.4 (5-19); Aspartate Amino Transferase 17 U/L (0-40); Blood Urea Nitrogen 14 mg/dL (6-20); Calcium 8.7 mg/dL (8.5-10.5); Carbon Dioxide 27 mmol/L (22-29); Chloride 104 mmol/L (98-107); Globulin 2.6 g/dL (1.3-4.6); Glomerular Filtration Rate 120.9 mL/min (90-130); Glucose 102 mg/dL (65-115); Magnesium 2.1 mg/dL (1.7-2.3); Osmolality Calculated 291 mOsm/kg (285-295); Phosphorus 3.9 mg/dL (2.5-4.5); Potassium 4.4 mmol/L (3.5-5.1); Sodium 140 mmol/L (136-145); Total Bilirubin 0.3 mg/dL (0.15-1.2); Total Protein 6.9 g/dL (6.6-8.7)
--- NOTE | 2021-09-18 11:10 | PM.MISC ---
Miscellaneous Note Purpose of Documentation: Medicine will sign off. Recall as needed. Discussed with NPU as well.
[2021-09-18 14:00] VITALS: BP 113/75; PULSE 85; RESP 18; TEMP 37.2; O2SAT 98
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
--- NOTE | 2021-09-18 17:13 | PC.SOCIAL ---
Patient did not attend group.
[2021-09-18] MEDS: quetiapine 100 mg Tablet PO (20:59)
[2021-09-18 21:39] VITALS: BP 98/53; PULSE 74; RESP 16; TEMP 36.8; O2SAT 98
[2021-09-19 06:00] VITALS: BP 100/63; PULSE 80; RESP 17; TEMP 36.4; O2SAT 98
[2021-09-19 07:55] LABS: Basophils % 0.3 %; Eosinophils # 0.3 10^3/uL (0.0-0.8); Hematocrit 46.1 % (42.0-52.0); Hemoglobin 15.3 g/dL (11.7-16.6); Lymphocytes # 2.3 10^3/uL (0.8-4.8); Lymphocytes % 26.1 %; Mean Corpuscular HGB Conc 33.2 g/dL (30.0-36.0); Mean Corpuscular Hemoglobin 29.2 pg (28.0-34.0); Mean Platelet Volume 10.1 fL (7.4-10.4); Monocytes # 0.4 10^3/uL (0.2-0.9); Monocytes % 4.9 %; Neutrophils # 5.73 10^3/uL (1.8-7.7); Neutrophils % 65.5 %; Nucleated Red Blood Cells % 0 %; Platelet Count 210 10^3/cmm (130-400); Red Blood Count 5.24 10^6/uL (4.1-5.3); Red Cell Distribution Width 12.6 % (12.1-15.1); White Blood Count 8.8 10^3/uL (4.0-10.0)
[2021-09-19 08:09] LABS: Alanine Aminotransferase 13 U/L (0-41); Albumin Level 4.6 g/dL (3.5-5.2); Alkaline Phosphatase 87 IU/L (40-130); Anion Gap 15.3 (5-19); Aspartate Amino Transferase 17 U/L (0-40); Blood Urea Nitrogen 17 mg/dL (6-20); Calcium 9.8 mg/dL (8.5-10.5); Carbon Dioxide 25 mmol/L (22-29); Chloride 105 mmol/L (98-107); Globulin 2.7 g/dL (1.3-4.6); Glomerular Filtration Rate 120.9 mL/min (90-130); Glucose 98 mg/dL (65-115); Magnesium 2.2 mg/dL (1.7-2.3); Osmolality Calculated 294 mOsm/kg (285-295); Phosphorus 3.9 mg/dL (2.5-4.5); Potassium 4.3 mmol/L (3.5-5.1); Sodium 141 mmol/L (136-145); Total Bilirubin 0.3 mg/dL (0.15-1.2); Total Protein 7.3 g/dL (6.6-8.7)
[2021-09-19] MEDS: divalproex ER 500 mg Tablet (24H) PO ×2 (09:22→17:46)
[2021-09-19] MEDS: ARIPiprazole 10 mg Tablet PO (09:22)
[2021-09-19] MEDS: fluoxetine 20 mg Capsule PO (09:23)
[2021-09-19] MEDS: pantoprazole DR 40 mg Tablet 20 MG PO (09:23)
[2021-09-19 13:41] VITALS: BP 111/64; PULSE 85; RESP 16; TEMP 36.6; O2SAT 95
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
[2021-09-19] MEDS: nicotine 2 mg Gum BUCCAL (16:55)
[2021-09-19] MEDS: trazodone 50 mg Tablet PO (20:39)
[2021-09-19] MEDS: quetiapine 100 mg Tablet PO (20:39)
[2021-09-19 21:20] VITALS: BP 110/68; PULSE 86; RESP 16; TEMP 36.3; O2SAT 93
[2021-09-20 06:00] VITALS: BP 99/52; PULSE 82; RESP 18; TEMP 36.8; O2SAT 96
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
[2021-09-20 10:17] VITALS: BP 99/52; PULSE 82; RESP 18; TEMP 36.8; O2SAT 96
[2021-09-20] MEDS: divalproex ER 500 mg Tablet (24H) PO (10:26)
[2021-09-20] MEDS: fluoxetine 20 mg Capsule PO (10:27)
[2021-09-20] MEDS: ARIPiprazole 10 mg Tablet PO (10:27)
[2021-09-20] MEDS: pantoprazole DR 40 mg Tablet 20 MG PO (10:27)
[2021-09-20] MEDS: nicotine 2 mg Gum BUCCAL (10:28)
== END 2021-09-20 12:26 | disposition home or self-care (01) | DRG 918 ==
LOC: ER 23:01 → ICU 23:54 → NP 09-16 17:07
PROVIDERS: Emergency Medicine; Admitting Provider Family Medicine; Emergency Provider Emergency Medicine; Visit Provider Psychiatry & Neurology Psychiatry
DX: T43.592A Poisoning by other antipsychotics and neuroleptics, intentional self-harm, initial encounter (principal); R45.851 Suicidal ideations; R00.0 Tachycardia, unspecified; R47.81 Slurred speech; F20.9 Schizophrenia, unspecified; F12.10 Cannabis abuse, uncomplicated; F15.10 Other stimulant abuse, uncomplicated; Z63.0 Problems in relationship with spouse or partner
CPT/HCPCS: 36415; 36600; 80053; 80164; 80306; 80307; 81003; 82803; 83690; 83735; 84100; 84443; 85025; 93005; 94664; 96360; 96372; 97165; 99285; C9113; J1630; J2060; J7030

== ENCOUNTER → 2023-06-19 11:49 | Outpatient (BNVA) | payer MEDICAID, SELFPAY | PROVIDERS: PCP Nurse Practitioner Family; Visit Provider Nurse Practitioner Family | DX: K21.9 Gastro-esophageal reflux disease without esophagitis (principal); N52.9 Male erectile dysfunction, unspecified; F20.9 Schizophrenia, unspecified; Z79.899 Other long term (current) drug therapy; Z13.6 Encounter for screening for cardiovascular disorders | CPT/HCPCS: 80053; 80061; 80164; 81003; 82306; 83036; 84403; 85025 ==